=== PATIENT | female | born 1995 | race Caucasian/White ===

== ENCOUNTER 2016-07-22 16:18 | Inpatient (IN) | payer BC ==
--- NOTE | 2016-07-22 17:14 | ED Physician Chart ---
Chief Complaint/HPI - Patient Information Date Seen:: 07/22/16 Time Seen:: 16:50 Chief Complaint:: sore throat History of Present Illness:: The patient has had a sore throat for last 6 days. Rapid strep screen was initially negative but was repeated and was positive 3 days ago. Patient was started on Penicillin VK 500 mg twice a day. Patient's temperature at home was up to 99.4. Patient has had a cough for last 1 week. Allergies:: Allergies Allergy/AdvReac Type Severity Reaction Status Date / Time No Known Allergies Allergy Verified 07/22/16 17:07 Historian:: Patient Review:: Nurse's Note Reviewed, Old Chart Reviewed Review of Systems - Review of Systems General/Constitutional: Fever Skin: No skin lesions Head: No headache Eyes: No loss of vision ENT: Sore throat Neck: No neck pain, No stiffness Cardio Vascular: No chest pain Pulmonary: Cough GI: No nausea, No vomiting G/U: No dysuria Musculoskeletal: No bone or joint pain, No back pain, No muscle pain Endocrine: No polyuria, No polydipsia Psychiatric: No prior psych history Hematopoietic: No bruising, No lymphadenopathy Allergic/Immuno: No urticaria, No angioedema Neurological: No syncope, No headache Past Medical History - Past Medical History Past Medical History: No significant medical hx Family History: Heart disease, HTN Social History: Non Smoker, Alcohol, Other (social alcohol only) Surgical History: None Psychiatricy History: None Medication: Reviewed Physical Exam - Physical Examination General/Constitutional: Well-developed, well-nourished, Alert, No distress Head: Atraumatic Eyes: Lids, conjuctiva normal, PERRL Skin: Nl inspection, No rash, No skin lesions, No ecchymosis, Well hydrated, No lymphadenopathy ENMT: External ears, nose nl, TM canals nl, Nasal exam nl, Lips, teeth, gums nl Other ENMT comments:: Stephens exudate on both tonsils; right tonsil larger than left. Neck: No nuchal rigidity Respiratory: Nl effort/Exclusion, Clear to Auscultation, No Wheeze/Rhonchi/Rales Cardio Vascular: RRR, No murmur, gallop, rubs GI: No organomegaly, No hernia, Normal BS's, Nondistended, No mass/bruits, No McBurney tenderness Other GI comments:: Right upper quadrant tenderness Extremities: Normal digits & nails Neuro/Psych: No focal deficits Misc: Normal back, No paraspinal tenderness Assessment - Assessment General Assessment: Patient was concerned about having her sore throat caused by sexually transmitted disease as she apparently had an exposure. I therefore treated the patient for possible gonococcal pharyngitis with Rocephin 250 mg IM and azithromycin 1 g by mouth. I then considered . As a possible diagnosis because the patient had a stephens exudate on both tonsils. I called Dr. Lauri Santizo who immediately suggested the possibility of diphtheria because of patient has a stephens tonsillar exudate. He stated the patient should be admitted and get Zosyn IV. ED Septic Shock - . Is Septic Shock (SBP<90, OR Lactate>4 mmol\L) present?: No Reassessment (Disposition) - Reassessment Reassessment Condition:: Improved - Diagnosis Diagnosis:: Exudative tonsillitis possible diphtheria - Patient Disposition Admitted to:: Med/Surg Spoke to:: Kirk Redman Admitting Medical Physician:: Kirk Redman Condition at Disposition:: Stable, Unchanged
[2016-07-22 17:20] LABS: HEMATOCRIT 39.4 % (35.0-45.0); HEMOGLOBIN 13.4 gm/dL (11.7-15.5); MEAN CELL VOLUME 87.8 fl (81-100); MEAN CORPUSCULAR HGB CONC 34.1 pg (28.0-36.0); PLATELET COUNT 207 Th/cmm (150-400); RED BLOOD COUNT 4.49 Mil/cmm (3.80-5.10); RED CELL DISTRIBUTION WIDTH 12.3 % (11.5-20.0)
[2016-07-22 17:38] LABS: BAND NEUTROPHILE 1 % (0-10); NEUTROPHILS 45 % (40-80); PLATELET ESTIMATE ADEQUATE (NORMAL); PLATELET MORPHOLOGY NORMAL (NORMAL); TOTAL CELLS COUNTED 100
[2016-07-22] MEDS ORDERED: Hydrocodone/APAP 5mg/325mg Tab PO ONE ×2 (17:50→21:34)
[2016-07-22] MEDS ORDERED: Hydrocodone/APAP 5mg/325mg Tab ONE (18:05)
[2016-07-22] MEDS ORDERED: Sodium Chloride 0.9% 1,000 ML IV ONE ×2 (20:23→20:24)
[2016-07-22] MEDS ORDERED: Piperacillin Sodium/Tazobact 3.375 gm Vial IV ONE (21:16)
--- NOTE | 2016-07-22 21:56 | Admit Criteria Form ---
Admit Criteria Forms - Admit Criteria Diagnosis: HEAD AND NECK DISEASE GR Clinical Indications for Admission to Inpatient Care ( Place 'X' for any and all applicable criteria): Hospital admission is needed for appropriate care of the patient because of ANY ONE of the following (1)(2): [ ]I. Severe sinusitis as indicated by ANY ONE of the following (6)(13)(21) [ ]a) Suspected BOATHOUSE KEEPER infection [ ]b) Bacteremia [ ]c) Hemodynamic instability [ ]d) Outpatient and observation care antibiotic treatment have failed or are not considered appropriate [ ]e) Surgical drainage needed that cannot be performed on an outpatient basis or observation. setting [ ]f) Suspected orbital involvement [ ]II. Acute glaucoma unresponsive to emergency treatment that requires medication or other treatment beyond the scope of observation care (1) [ ]III. Severe eye infection or inflammation (eg, uveitis) which is unresponsive to emergency treatment and requires medication or other treatment beyond the scope of observation care (1)(2)(3)(4) [ ]IV. Severe epistaxis requiring posterior packing (5)(6) [ ]V. Acute bacterial labyrinthitis(6)(7) [ ]. Viral labyrinthitis with symptoms uncontrollable on an outpatient or observation care basis (6)(7) [ ]VII. Severe necrotizing external otitis unresponsive to outpatient and observation care treatment(6) [ ]VIII. Otitis media requiring treatment beyond the scope of outpatient and observation care, as indicated by presence or persistence of ANY ONE of the following(6)(8)(9): [ ]a) Hemodynamic instability [ ]b) Mastoiditis [ ]c) Suspected BOATHOUSE KEEPER infection [ ]d) Bacteremia [ ]e) Surgical drainage needed that cannot be performed as an outpatient. or in an observation setting. [ ]IX. Epiglottitis or supraglottitis(6)(11)(12)(13)(14) [ ]X. Stridor or laryngospasm (unresponsive to emergency management) (6)(11)( 12)(13)(14) [X]XI. Acute pharyngitis or tonsillitis and ANY ONE of the following (14)(15)( 16): [X]a) Hemodynamic instability remaining after emergency or observation level care (as appropriate) [ ]b) Surgical drainage needed that cannot be performed in outpatient or observation setting [ ]c) Mediastinitis [ ]d) Thrombophlebitis of internal jugular vein (Lemierre syndrome) [ ]XII. Sialoadenitis and ANY ONE of the following (17) (18) [ ]a) Hemodynamic instability remaining after emergency or observation level care(as appropriate) [ ]b) Surgical drainage needed that cannot be performed in outpatient or observation setting [ ]XIII. Airway blockage or inability to swallow (6)(12)(19)(20) [ ]XIV.Complicated infection indicated by ANY ONE of the following(6)(13)(21)(22 ): [ ]a) Abscess or swelling causing airway difficulty(12) [ ]b) Bacteremia [ ]c) Hemodynamic instability [ ]d) Suspected BOATHOUSE KEEPER infection [ ]e) Outpatient and observation care antibiotic treatment have failed or are not considered appropriate [ ]f) Surgical drainage needed that cannot be performed on an outpatient basis or observation setting [ ]g) Other management need that cannot be performed in outpatient or observation setting: [ ]XV. Severe trauma requiring inpatient medical treatment of eye, head, pharynx, or airway (1)(23)(24)25)266) [ ]XVI. Ischemic optic neuropathy(11) [ ]XVII.Head or Neck Disease condition and ANY ONE of the following: [ ]a) Symptom or finding for which emergency and observation care have failed or are not considered appropriate (Also use General Criteria: Observation Care as appropriate) [ ]b) Presence of ANY ONE of the following: [ ]i) A General Admission Criteria [ ]ii) A Pediatric General Admission Criteria The original [facility] content created by [facility] has been revised. The portions of the content which have been revised are identified through the use of italic text or in bold, and [facility] has neither reviewed nor approved the modified material. All other unmodified content is copyright [facility]. Please see references footnoted in the original [facility] edition 2016 Admit Criteria Met?: Yes
[2016-07-22] MEDS ORDERED: HYDROmorphone 1 mg/mL 1mL Syr ONE (22:07)
[2016-07-22] MEDS: HYDROmorphone 1 mg/mL 1mL Syr IVP PRN (22:15)
[2016-07-23] MEDS ORDERED: Piperacillin Sodium/Tazobact 3.375 gm Vial IV ONE (01:37)
[2016-07-23] MEDS: Hydrocodone/APAP 10 mg/325 mg Tab PO PRN ×2 (02:21→12:14)
[2016-07-23] MEDS: HYDROmorphone 1 mg/mL 1mL Syr IVP PRN (05:56)
[2016-07-23 06:55] LABS: HEMOGLOBIN 12.3 gm/dL (11.7-15.5); MEAN CELL VOLUME 86.4 fl (81-100); MEAN CORPUSCULAR HGB CONC 34.7 pg (28.0-36.0); MEAN PLATELET VOLUME 6.8 fl; PLATELET COUNT 199 Th/cmm (150-400); RED CELL DISTRIBUTION WIDTH 12.8 % (11.5-20.0)
[2016-07-23 07:09] LABS: HEMATOCRIT 35.4 % (35.0-45.0); WHITE BLOOD COUNT 8.4 Th/cmm (4.8-10.8)
[2016-07-23 07:16] LABS: ALB/GLOB RATIO 0.9 (1.0-1.8); ALKALINE PHOSPHATASE 96 U/L (34-104); ANION GAP 3.7 (7.0-16.0); BILIRUBIN,TOTAL 1.1 mg/dL (0.3-1.0); BUN - UREA NITROGEN 10 mg/dL (7-25); BUN/CREATININE RATIO 14.3; CARBON DIOXIDE 31.1 mEq/L (21.0-31.0); CHLORIDE 102 mEq/L (98-107); CREATININE - SERUM 0.7 mg/dL (0.6-1.2); GLUCOSE 101 mg/dL (70-105); POTASSIUM SERUM 3.8 mEq/L (3.5-5.1); SGOT 39 U/L (13-39); SGPT/ALT 53 U/L (7-52); SODIUM SERUM 133 mEq/L (136-145)
[2016-07-23 08:16] LABS: BAND NEUTROPHILE 1 % (0-10); BASOPHIL 1 % (0-3); NEUTROPHILS 40 % (40-80); PLATELET ESTIMATE ADEQUATE (NORMAL); PLATELET MORPHOLOGY NORMAL (NORMAL); TOTAL CELLS COUNTED 100
--- NOTE | 2016-07-23 17:20 | History & Physical ---
ADMIT DATE: 07/23/2016 PATIENT IDENTIFICATION: A 21-year-old female. CHIEF COMPLAINT: Sore throat and pain. HISTORY OF PRESENT ILLNESS: The patient is a college student. She is from [facility]. She goes to [facility], states that ____ Tuesday she started with a sore throat, so she went to a local urgent care and she had a rapid strep screen test, which was initially negative, but repeat strep screen came out positive. So, the patient was treated with penicillin-VK 500 mg twice a day. According to the patient, she did not get better. She went to [facility] and she was advised to go to Emergency Room. She lives in [place] and she ended up in [facility] for evaluation. The patient was seen by Emergency Room MD and I was called in to admit the patient, based on Emergency Room MD discussion with the Infectious Disease since the patient had a sore throat and the patient had ____ exudates with possibilities of ruled out diphtheria. The patient was advised to be admitted with IV Zosyn. PAST MEDICAL HISTORY: None. MEDICATIONS AT HOME: control pills. ALLERGIES: None. SOCIAL HISTORY: She is a student. She occasionally smokes marijuana, occasionally drinks alcohol, but denies any street drug use. Denies any smoking cigarettes. FAMILY MEDICAL HISTORY: Negative for diabetes, hypertension as per patient's account. REVIEW OF SYSTEMS: The patient is complaining about feeling feverish and having sore throat, but denies any dysphagia or odynophagia. Denies any chest pain, shortness of breath. Denies any abdominal pain. Denies any joint pain, denies any skin rash. Denies any headache. Denies any cough. Denies any seizure or syncopal episode. The patient is otherwise healthy. PHYSICAL EXAMINATION: GENERAL: The patient is alert, awake, oriented, lying in the bed. She was on her telephone, looking and texting. VITAL SIGNS: Temperature reported 97.8 in Emergency Room, pulse is 92, respiratory rate is 20, blood pressure 101/64. Upon my evaluation, her temperature was 99.1, pulse was 86, respiratory is 18, blood pressure 101/54. HEENT: Normocephalic, atraumatic. Extraocular muscles are intact. Tongue was pink and coated. There are enlarged tonsils noted with exudate in the back noted, unable to visualize posterior pharynx. Tongue was pink and coated. Otherwise, no other oral lesions noted and no sinus tenderness noted. NECK: Supple. No thyromegaly. On the right side, there is posterior cervical chain lymph node swelling noted. No neck vein distention. HEART: Both heart sounds are regular. No S3, no S4, no murmur. CHEST: Lung equal in expansion, no wheezing, no crackles. ABDOMEN: Soft. No guarding, no rigidity. Liver, spleen, not palpable. No palpable mass. EXTREMITIES: No edema, no cyanosis or clubbing. Peripheral pulses +2. No calf tenderness noted. NEUROLOGIC: Alert, awake, oriented to time, place, person, 2-12 cranial nerves are intact. Power in upper and lower extremities, 5+. Sensation to touch intact. Babinskis in both toes are going down. No cerebral sign. AVAILABLE DIAGNOSTIC DATA: The patient's white count of 11, hemoglobin 13.4, platelet count of 207. BUN and creatinine ordered this morning was 10 and 0.7, sodium 133, potassium 3.8, AST and ALT 39 and 53, albumin of 3.5. Other labs are not available for my review. CLINICAL IMPRESSION: A 21-year-old female with no significant past medical history. She is a college student presented to Emergency Room for sore throat evaluation noted to have ____ tonsillitis with exudate. The patient's rapid strep test was questionable positive. The patient has not improved. My clinical impression that the patient has possibilities of infectious mononucleosis. I doubt patient has other etiology of causing her to have tonsillitis though question is raised by Infectious Disease doctor that the possibility of rule out diphtheria. At this time, the patient has been admitted after discussion by Emergency Room M.Maria Ines with ID, so the patient has been admitted. PLAN: The patient currently looks comfortably for me. The patient will be given IV antibiotic as directed by Infectious Disease. I will check Monospot test and EBV titer to evaluate the patient. Symptoms management will be provided with lozenges and pain control. The patient will be seen by Infectious Disease and will give the recommendations if the patient wishes to other hospital, which will be up to them, since ENT Service is not available at [facility], which has been discussed with the patient at bedside earlier this morning. JOB# [id number]
[2016-07-24 13:43] LABS: EBVNA (NUC AG IGG) SEE REF. LAB REPORT; EPSTEIN BARR AB VCA IGM SEE REF. LAB REPORT; EPSTEIN BARR VCA IGG SEE REF. LAB REPORT
== END 2016-07-23 15:30 | disposition home or self-care (01) | DRG 153 ==
LOC: ER 16:18 → MSI 21:15
PROVIDERS: ADMIT Internal Medicine; ATTEND Internal Medicine
DX: J03.80 Acute tonsillitis due to other specified organisms (principal); B27.90 Infectious mononucleosis, unspecified without complication; Z82.49 Family history of ischemic heart disease and other diseases of the circulatory system
CPT/HCPCS: 36415-UA; 80053-TC; 85007-TC; 85027-TC; 86308-90; 86664-90; 86665-90; 87070-90; J0696; J1170; J2405; J2543; J7030; Z7610